=== PATIENT | male | born 1955 | race Caucasian/White ===

== ENCOUNTER → 2019-07-10 | Outpatient (CLI) | payer OTHER ==
[~2019-07-10] VITALS: Ht 180.3 cm; Wt 105.7 kg
[~2019-07-10] MED LIST: ASA81BEC PO; FLOMAX0.4 MG PO; UNICOMPLEX M TA1 TA1 PO; VENTOLIN HFA 1818 GM INH
[2019-07-10 12:53] VITALS: BP 1215/62
[2019-07-10 13:06] LABS: HEMATOCRIT 50.4 % (42.0-52.0); HEMOGLOBIN 16.3 gm/dL (14.0-18.0); MCH 30.1 pg (26.0-34.0); MCHC 32.4 g/dL (28.0-37.0); MCV 92.8 fL (80.0-100.0); RBC 5.43 mil/uL (4.50-6.00); RDW 14.1 % (10.5-14.5); WBC 11.2 thou/uL (4.0-11.0)
[2019-07-10 15:56] VITALS: BP 144/68
[2019-07-10 16:08] VITALS: BP 122/61
== END | disposition home or self-care (01) ==
LOC: CATH 10:22
PROVIDERS: Nuclear Medicine Nuclear Cardiology
DX: M54.9 Dorsalgia, unspecified (principal); M80.08XA Age-related osteoporosis with current pathological fracture, vertebra(e), initial encounter for fracture; E78.5 Hyperlipidemia, unspecified; F17.210 Nicotine dependence, cigarettes, uncomplicated; Z98.890 Other specified postprocedural states; Z79.899 Other long term (current) drug therapy; Z88.7 Allergy status to serum and vaccine; Z79.01 Long term (current) use of anticoagulants; Z95.2 Presence of prosthetic heart valve

== ENCOUNTER → 2019-07-10 | Outpatient (CLI) | payer OTHER | LOC: RAD 10:22 → MRI 10:22 | DX: M48.54XA Collapsed vertebra, not elsewhere classified, thoracic region, initial encounter for fracture (principal); R60.0 Localized edema ==